=== PATIENT | female | born 1990 | race Caucasian/White ===

== ENCOUNTER 2020-04-22 07:31 | Emergency (ER) | payer OTHER, SELFPAY ==
[2020-04-22 07:39] VITALS: BP 136/84; PULSE 81; RESP 18; TEMP 36.5; O2SAT 98; BMI 43.4
--- NOTE | 2020-04-22 08:04 | ED.DENTAL ---
HPI - Dental/Oral General Chief complaint: Dental/Oral Stated complaint: JAW PAIN Time Seen by Provider: 04/22/20 08:04 Source: patient Mode of arrival: ambulatory Limitations: no limitations History of Present Illness MD Complaint: tooth pain Location: Tooth # (29) Teeth map: 1. Care is tooth tender no gum swelling Onset (ago): day(s) (2) Duration: constant Severity: moderate Relieving factors: nothing Exacerbating factors: cold Context: history of dental caries Related Data Previous Rx's Medication Instructions Recorded bupropion HCl 300 mg 24 hr tablet, 300 mg PO QAM #90 tab 01/30/20 extended release amoxicillin-pot clavulanate 1 tab PO BID #20 tab 04/22/20 [Augmentin] tramadol 50 mg PO Q6H PRN #20 tab 04/22/20 Allergies Allergy/AdvReac Type Severity Reaction Status Date / Time bananas Allergy Unknown swollen Uncoded 08/05/19 00:00 Review of Systems Review of Systems: Yes all other systems are reviewed and are negative [facility] Social History Social History Advance Directives: No Advance Directives Information Provided: No Physical Exam Vital Signs: Vital Signs: Last Vital Signs Temp 97.7 F 04/22/20 07:39 Pulse 81 04/22/20 07:39 Resp 18 04/22/20 07:39 BP 136/84 04/22/20 07:39 Pulse Ox 98 04/22/20 07:39 Body Mass Index 43.4 Const: General: cooperative, healthy appearing and acute distress Orientation/consciousness: patient oriented x3 HENMT: Head: Yes normocephalic and Yes atraumatic Mouth: Normal oral and palatal mucosa present Teeth and gingiva: caries (tooth 29) Throat: Yes posterior oropharynx normal Eyes: General: appearance normal, both eyes and all related structures Neck: Neck: Yes normal visual inspection, Yes full ROM and Yes no lymphadenopathy Resp: Effort & Inspection: normal respiratory effort Auscultation: clear to auscultation bilaterally Neuro: General: patient oriented x3 Procedures Nerve Block Nerve Block 1: Time out performed: Yes Local Anesthetic: lidocaine 2% Amount of anesthesia used (mL): 5 Side: right Intraoral Nerve Block: inferior alveolar and mental Procedure Successful: Yes Patient Tolerated Procedure: well Complications: none MDM - Dental/Oral MDM Narrative Medical decision making narrative: Patient with dental caries inferior alveolar and mental block was given patient feels much better after the injection pain is almost gone discharged home on Augmentin patient has a follow-up planned with dentist and needs root canal Discharge Plan Discharge Clinical Impression: Dental caries Patient Disposition: Home, Self-Care Instructions: Toothache (ED) Additional Instructions: Take medication as prescribed and follow with dentist Prescriptions: New amoxicillin-pot clavulanate [Augmentin] 875-125 mg tablet 1 tab PO BID Qty: 20 RF: 0 tramadol 50 mg tablet 50 mg PO Q6H PRN (Reason: pain) Qty: 20 RF: 0 No Action bupropion HCl 300 mg tablet extended release 24 hr 300 mg PO QAM Qty: 90 RF: 1 Discharge Date/Time: 04/22/20 09:06
[2020-04-22] MEDS: Amoxicillin/Potassium Clav 875 MG TABLET PO (08:17)
[2020-04-22] MEDS: Lidocaine HCl 2 % MPF 5 ML VIAL INFILTRATI ×2 (08:45)
== END 2020-04-22 09:06 | disposition home or self-care (01) ==
PROVIDERS: Emergency Provider Internal Medicine; PCP Internal Medicine
DX: K02.9 Dental caries, unspecified (principal)
CPT/HCPCS: 99283; 99284

== ENCOUNTER 2020-09-28 11:46 | Outpatient (REF) | payer OTHER, SELFPAY ==
[2020-09-28 12:57] LABS: MANUAL DIFF FLAG NO
[2020-09-28 13:07] LABS: Basophils Percent Auto 0.6 % (0-2); Eosinophils Absolute Auto 0.1 X10*3/uL (0.0-0.4); Eosinophils Percent Auto 1.2 % (0-4); Hemoglobin 12.1 g/dl (12.0-16.0); Imm Gran Abs Auto 0.03 X10*3/uL (0.00-0.03); Imm Gran Pct Auto 0.4 % (0.0-0.4); Lymphocytes Absolute Auto 2.3 X10*3/uL (1.2-4.9); Lymphocytes Percent Auto 33.7 % (20-40); Mean Corpuscular Hemoglobin 25.4 pg (27.0-33.0); Mean Corpuscular Volume 81.9 fL (80-98); Mean Platelet Volume 12.4 fL (9.4-12.3); Monocytes Absolute Auto 0.4 X10*3/uL (0.1-1.2); Monocytes Percent Auto 6.4 % (2-11); Neutrophils Absolute Auto 3.9 X10*3/uL (2.0-8.3); Neutrophils Percent Auto 57.7 % (45-73); Platelet Count 266 X10*3/uL (160-400); Red Blood Count 4.76 X10*6/uL (4.20-5.50); Red Cell Distribution Width 14.1 % (11.0-16.0); White Blood Count 6.8 X10*3/uL (4.8-10.8)
[2020-09-28 13:21] LABS: Alanine Aminotransferase 18 U/L (0-31); Albumin Level 3.8 g/dL (3.5-5.0); Alkaline Phosphatase 110 U/L (39-117); Anion Gap 12 (12-20); Aspartate Amino Transferase 16 U/L (5-31); Bilirubin Total 0.4 mg/dL (0.0-1.0); Blood Urea Nitrogen 10 mg/dL (9-16); Calcium 9.1 mg/dL (8.4-10.2); Carbon Dioxide 28 mmol/L (22-29); Chloride 106 mmol/L (96-108); Cholesterol 165 mg/dL; Estimated Glomerular Filt Rate > 60; Glucose Fasting 91 mg/dL (60-99); HDL Cholesterol 44 mg/dL; LDL Cholesterol Calculated 103 mg/dl; Potassium 5.1 mmol/L (3.3-5.1); Sodium 141 mmol/L (135-145); Total Protein 7.1 g/dL (6.5-8.0); Triglycerides 93 mg/dL
[2020-09-28 13:37] LABS: Thyroid Stimulating Hormone 1.45 uIU/mL (0.32-4.0)
[2020-09-29 08:13] LABS: Syphilis Screen Nonreactive (Nonreactive)
[2020-09-29 08:16] LABS: HBc Num1 0.25 S/CO (0.00-0.79); HBsAGNum1 0.22 S/CO (0.00-0.99); HIV AB/AG Nonreactive (Nonreactive); HIV Num 1 0.09 S/CO (0.00-0.99); Hepatitis B Core Antibody Nonreactive (Nonreactive); Hepatitis B Surface Antigen Negative (Negative)
[2020-09-29 08:36] LABS: HBS Num1 241.82 mIU/mL (0-7.99); Hepatitis A Antibody IgM 0.25 Index (0-0.79); ~HepC Num1 0.12 S/CO (0.00-0.79); ~Hepatitis A Antibody IgM Nonreactive (Nonreactive); ~Hepatitis B Surface Antibody REACTIVE (Nonreactive); ~Hepatitis C Antibody Nonreactive (Nonreactive)
[2020-10-01 18:56] LABS: Vitamin D 25-OH, D2 5 ng/mL; Vitamin D 25-OH, D3 12 ng/mL; Vitamin D 25-OH, Total 17 ng/mL (30-100)
== END 2020-09-28 11:47 | disposition home or self-care (01) ==
LOC: HO.LAB 11:46
PROVIDERS: Visit Provider Internal Medicine
DX: Z01.84 Encounter for antibody response examination (principal); Z11.59 Encounter for screening for other viral diseases; Z11.4 Encounter for screening for human immunodeficiency virus [HIV]; Z20.2 Contact with and (suspected) exposure to infections with a predominantly sexual mode of transmission; E55.9 Vitamin D deficiency, unspecified; E66.9 Obesity, unspecified
CPT/HCPCS: 36415; 80053; 80061; 82306; 84443; 85025; 86704; 86706; 86709; 86780; 86803; 87340; 87389

== ENCOUNTER 2021-03-03 12:51 | Outpatient (REF) | payer OTHER, SELFPAY ==
[2021-03-03 15:58] LABS: COVID-19 Test Negative (Negative)
== END 2021-03-03 12:52 | disposition home or self-care (01) ==
LOC: HO.LAB 12:51
PROVIDERS: Visit Provider Internal Medicine
DX: Z20.822 Contact with and (suspected) exposure to COVID-19 (principal)
CPT/HCPCS: 36415; 87635; C9803

== ENCOUNTER 2021-06-14 16:53 | Outpatient (REF) | payer OTHER, SELFPAY ==
[2021-06-15 08:24] LABS: HBS Num1 263.27 mIU/mL (0-7.99); ~Hepatitis B Surface Antibody REACTIVE (Nonreactive)
[2021-06-15 08:52] LABS: HBc Num1 0.09 S/CO (0.00-0.79); HBsAGNum1 0.15 S/CO (0.00-0.99); Hepatitis B Core Antibody Nonreactive (Nonreactive); Hepatitis B Surface Antigen Negative (Negative)
[2021-06-16 14:02] LABS: TS Negative Control Passed; TS Panel A 0; TS Panel B 0; TS Positive Control Passed; TSpotTB Negative (Negative)
== END 2021-06-14 16:54 | disposition home or self-care (01) ==
LOC: HO.LAB 16:53
PROVIDERS: PCP Internal Medicine; Visit Provider Internal Medicine
DX: Z11.59 Encounter for screening for other viral diseases (principal); Z11.1 Encounter for screening for respiratory tuberculosis; R76.12 Nonspecific reaction to cell mediated immunity measurement of gamma interferon antigen response without active tuberculosis
CPT/HCPCS: 36415; 86481; 86704; 86706; 87340

== ENCOUNTER 2021-09-19 07:59 | Outpatient (REF) | payer OTHER, SELFPAY ==
--- NOTE | ~2021-09-19 | XR_ITS ---
EXAMINATION: XR KNEE, LEFT XR KNEE AP STANDING CLINICAL INFORMATION: Pain. COMPARISON: Radiographs dated 04/27/2014. TECHNIQUE: Lateral and axial views of the left knee were obtained. AP bilateral standing view of the knees was obtained. FINDINGS: Bones and soft tissues are normal. No fracture or joint effusion. Alignment is anatomic. Joint spaces are well maintained. No abnormal soft tissue calcification. No varus or valgus configuration is seen bilaterally. XR/XR knee LT 2V IMPRESSION: Normal left knee radiographs and AP standing view of the bilateral knees.
--- NOTE | ~2021-09-19 | XR_ITS ---
EXAMINATION: XR KNEE, LEFT XR KNEE AP STANDING CLINICAL INFORMATION: Pain. COMPARISON: Radiographs dated 04/27/2014. TECHNIQUE: Lateral and axial views of the left knee were obtained. AP bilateral standing view of the knees was obtained. FINDINGS: Bones and soft tissues are normal. No fracture or joint effusion. Alignment is anatomic. Joint spaces are well maintained. No abnormal soft tissue calcification. No varus or valgus configuration is seen bilaterally. XR/XR knee standing BI IMPRESSION: Normal left knee radiographs and AP standing view of the bilateral knees.
== END 2021-09-19 08:00 | disposition home or self-care (01) ==
LOC: HO.HOSX 07:59
PROVIDERS: Visit Provider Physician Assistant
DX: M22.42 Chondromalacia patellae, left knee (principal)
CPT/HCPCS: 20610; 73560; 73565; 99202; J1040

== ENCOUNTER 2022-09-19 17:26 | Outpatient (AMB) | payer OTHER, SELFPAY ==
--- NOTE | 2022-09-19 17:28 | MHC.PC.OV ---
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 Accompanied by: Self / Same As Patient Allergies No Known Food Allergies Allergy (Mild, Verified 09/19/22 17:37) itchy tongue Medication List - Last Reconciled 09/19/22 by Natividad Mahajan MD bupropion HCl 300 mg PO QAM buspirone 5 mg PO BID cholecalciferol (vitamin D3) 25 mcg PO DAILY clobetasol 0.05% 1 appl topical BID 2 weeks hydroxyzine HCl 25 mg PO Q6-8H PRN ketoconazole 2% 1 appl topical 3XW 30 days tizanidine 4 mg PO TID PRN 30 days Tobacco use date assessed: 09/19/22 Dental Screening Dental Screen Date: 09/19/22 Did you have a dental visit in the last 12 months?: Yes Did you have a dental problem in the last 6 months where you did not have access to dental care?: No Was dental information given to patient?: Patient has dentist HPI HPI Comments History of Present Illness Details This is a 31-year-old female that comes for her physical exam. She has moderately severe depression that has been stable with bupropion. Last Pap smear was a year ago. No chest pain or shortness of breath. No acute complaints. [facility] Medical History (Updated 09/27/21 @ 17:39 by Natividad Mahajan MD) Depression Exposure to STD Hypovitaminosis D Morbid obesity due to excess calories Obese Surgical History No pertinent past surgical history Family History Mother Hypertension Father Diabetes Social History Housing: Apartment Alcohol intake: current Alcohol intake frequency: holidays/special occasions only Alcohol type: beer Patient Tobacco Use Status: Former Tobacco user Tobacco use type: Cigarette e-Cigarette/Vaping Use: Never Used Second Hand Smoke Exposure: No service: No Current occupational status: employed Current occupational exposures/hazards: No Cognitive needs: No Hearing needs: No Vision needs: Yes (Glasses) Questionnaire PHQ-9 Over the last 2 weeks, how often have you been bothered by any of the following problems? 1. Little interest or pleasure in doing things: not at all 2. Feeling down, depressed, or hopeless: several days 3. Trouble falling or staying asleep, or sleeping too much: not at all 4. Feeling tired or having little energy: not at all 5. Poor appetite or overeating: not at all 6. Feeling bad about yourself - or that you are a failure or have let yourself or your family down: not at all 7. Trouble concentrating on things, such as reading the newspaper or watching television: not at all 8. Moving or speaking so slowly that other people could have noticed. Or the opposite - being so fidgety or restless that you have been moving around a lot more than usual: not at all 9. Thoughts that you would be better off or of hurting yourself in some way: not at all Total score: 1 Depression Screening Interpretation: Negative 35741 - PHQ-9 Billing: Yes Source: Developed by Drs. Brett Spear, Cammy Pal, Alexandru Barba and colleagues, with an educational sagar from [employer]. Thrive Questionnaire Date Thrive assessed: 09/19/22 I am a: Patient What is your living situation today?: I have a steady place to live Within the past 12 months, did the food you bought not last and you didn't have the money to get more?: Never true Within the past 12 months, did you worry whether your food would run out before you got money to buy more?: Never true Do you have trouble paying for medicines?: No Do you have trouble getting transportation to medical appointments?: No Do you have trouble paying your heating and electricity bill?: No Do you have trouble taking care of your child, family member or friend?: No Do you have trouble with day-to-day activities such as bathing, preparing meals, shopping, managing finances, etc.?: No Are you currently unemployed and looking for a job?: No Are you interested in more education?: No Please select the resources that you would like help with: None Currently or been in a relationship where the following occur: no concerns reported AUDIT C Alcohol Use Questionnaire (AUDIT-C) 1. How often do you have a drink containing alcohol?: Never Total Score: 0 Score Reviewed/Action Taken: No LAZARO-7 AMB Questionnaire LAZARO-7 Date LAZARO - 7 assessed: 09/19/22 Feeling nervous, anxious, or on edge: 1 = Several days Not being able to stop or control worryin = Not at all Worrying too much about different things: 1 = Several days Trouble relaxin = Not at all Being so restless that it is hard to sit still: 0 = Not at all Becoming easily annoyed or irritable: 0 = Not at all Feeling afraid as if something awful might happen: 0 = Not at all Total LAZARO-7 score (0-4 normal; 5-9 mild; 10-14 moderate; 15-21 severe): 2 Source: Developed by Drs. Brett Spear, Cammy Pal, Alexandru Barba and colleagues, with an educational sagar from [employer]. LAZARO-7 Assessment Billing LAZARO-7 Assessment Tool: LAZARO-7 Assessment 24355 Review of Systems Const All systems reviewed & are unremarkable except as noted in HPI and below Eyes Reports no additional complaints, Denies change in vision and Denies other visual disturbances Card Denies chest pain at rest, Denies chest pain with activity, Denies edema, Denies irregular heart rhythm, Denies claudication, Denies dyspnea, Denies dyspnea on exertion, Denies orthopnea, Denies paroxysmal nocturnal dyspnea and Denies slow heart rate Resp Denies cough, Denies dyspnea and Denies dyspnea on exertion GI Denies abdominal pain, Denies change in bowel habits, Denies excessive flatus, Denies nausea and Denies vomiting Denies urinary incontinence, Denies urinary hesitancy and Denies urinary urgency Musc Denies abnormal gait, Denies atrophy, Denies deformity and Denies limited range of motion Skin/Breast Denies bleeding lesions, Denies changing lesions and Denies rash Neuro Denies abnormal gait and Denies lack of coordination Physical exam (Primary Care) Vital Signs: Last Vital Signs BP 112/70 09/19/22 17:30 BMI result Body Mass Index 39.1 Tobacco/Smoking Status: Tobacco use Status Tobacco use date assessed 05/17/21 09/27/21 17:28 Patient Tobacco Use Status Former Tobacco user 09/27/21 17:28 Tobacco use type Cigarette 09/27/21 17:28 e-Cigarette/Vaping Use Never Used 09/27/21 17:28 Depression Screening Interpretation: Negative Thrive Assessment: Date of Thrive Assessment Date Thrive assessed 08/09/21 09/27/21 17:28 Currently or been in a relationship where the following occur: no concerns reported Const Orientation/consciousness: patient oriented x3 HENMT Head: Yes normal to inspection, Yes normocephalic and Yes atraumatic Ears: external ears normal Eyes General: appearance normal, both eyes and all related structures Eyelids: Yes eyelids normal Conjunctivae: conjunctivae normal Neck Neck: Yes normal visual inspection and Yes supple Resp Effort & Inspection: normal respiratory effort Auscultation: clear to auscultation bilaterally Cardio Jugular venous distension: no JVD Rate: regular rate Rhythm: regular rhythm Heart sounds: S1 normal heart sound present and S2 normal heart sound present GI Inspection: Yes normal to inspection Palpation (GI): Soft to palpation and nontender Auscultation: normal bowel sounds Skin General skin exam: no rashes or lesions noted Neuro General: patient oriented x3 and no focal motor deficits Extrem General: Yes full ROM Psych Appearance: grossly normal Assessment and Plan Assessment & Plan (1) Physical exam: Code(s): Z00.00 - Encounter for general adult medical examination without abnormal findings Plan: Repeat in a year (2) Moderately severe depression: Code(s): F32.2 - Major depressive disorder, single episode, severe without psychotic features Plan: Continue bupropion Orders: Orders Comprehensive [place]. Panel Fast Today Z00.00 - Encounter for general adult medical examination without abnormal findings Lipid Panel Today Z00.00 - Encounter for general adult medical examination without abnormal findings Vitamin D 25-OH Total Today E55.9 - Vitamin D deficiency, unspecified Medications: Refilled bupropion HCl 300 mg PO QAM 90 tabs 1RF Z00.00 - Encounter for general adult medical examination without abnormal findings buspirone 5 mg PO BID 60 tabs 0RF Z00.00 - Encounter for general adult medical examination without abnormal findings cholecalciferol (vitamin D3) 25 mcg PO DAILY 90 tabs 0RF Z00.00 - Encounter for general adult medical examination without abnormal findings tizanidine 4 mg PO TID 30 days PRN 90 tabs 3RF muscle spasticity Z00.00 - Encounter for general adult medical examination without abnormal findings ketoconazole 2% 1 appl topical 3XW 30 days 120 mL 0RF L21.9 - Seborrheic dermatitis, unspecified hydroxyzine HCl 25 mg PO Q6-8H PRN 90 tabs 0RF axiety Z00.00 - Encounter for general adult medical examination without abnormal findings clobetasol 0.05% 1 appl topical BID 2 weeks 50 mL 0RF L21.9 - Seborrheic dermatitis, unspecified Coding Level of Care Code Est Pt Prev Care 18-39y(91442) Diagnoses Physical exam Z00.00 Moderately severe depression F32.2 Additional Codes LAZARO-7 Assessment Billing - LAZARO-7 Assessment Tool: LAZARO-7 Assessment 62554 ([id number]) Time Spent (min) 32
[2022-09-19 17:30] VITALS: BP 112/70; BMI 39.1
== END 2022-09-19 17:49 | disposition home or self-care (01) ==
PROVIDERS: PCP Internal Medicine; Visit Provider Internal Medicine
DX: Z00.00 Encounter for general adult medical examination without abnormal findings (principal); F32.2 Major depressive disorder, single episode, severe without psychotic features
CPT/HCPCS: 99395

== ENCOUNTER 2023-09-24 17:10 | Outpatient (AMB) | payer OTHER, SELFPAY ==
[2023-09-24 17:14] VITALS: BP 110/62; PULSE 76; O2SAT 99; BMI 29.7
--- NOTE | 2023-09-24 17:14 | A.OFFPC_ITS ---
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 Accompanied by: Self / Same As Patient Allergies No Known Food Allergies Allergy (Mild, Verified 09/24/23 17:22) itchy tongue Medication List - Last Reconciled 09/24/23 by Natividad Mahajan MD bupropion HCl XL 300 mg PO QAM buspirone 5 mg PO BID cholecalciferol (vitamin D3) 25 mcg PO DAILY clobetasol 0.05% 1 appl topical BID 2 weeks hydroxyzine HCl 25 mg PO Q6-8H PRN ketoconazole 2% 1 appl topical 3XW 30 days tizanidine 4 mg PO TID PRN 30 days Tobacco use date assessed: 09/24/23 Dental Screening Dental Screen Date: 09/24/23 Did you have a dental visit in the last 12 months?: Yes Did you have a dental problem in the last 6 months where you did not have access to dental care?: No Was dental information given to patient?: Patient has dentist HPI HPI Comments History of Present Illness Details This is a 32-year-old female with mild recurrent major depression that comes for her physical exam. Depression has been stable with bupropion. Last Pap smear was at [place] 2022 and was normal as per patient. She complains of nontender lymphadenopathy in the right side submandibular that she noticed few weeks ago. No fever or night sweats. Will order ultrasound and will give her antibiotics. [facility] Medical History (Updated 09/24/23 @ 17:39 by Natividad Mahajan MD) Moderately severe depression Hypovitaminosis D Morbid obesity due to excess calories Exposure to STD Depression Obese Surgical History No pertinent past surgical history Family History Mother Hypertension Father Diabetes Social History Housing: Apartment Alcohol intake: current Alcohol intake frequency: holidays/special occasions only Alcohol type: beer Patient Tobacco Use Status: Former Tobacco user Tobacco use type: Cigarette e-Cigarette/Vaping Use: Never Used Second Hand Smoke Exposure: No service: No Current occupational status: employed Current occupational exposures/hazards: No Cognitive needs: No Hearing needs: No Vision needs: Yes (Glasses) Questionnaire PHQ-9 Over the last 2 weeks, how often have you been bothered by any of the following problems? 75765 - PHQ-9 Billing: Patient declined-do not bill Source: Developed by Drs. Brett Spear, Cammy Pal, Alexandru Barba and colleagues, with an educational sagar from [employer]. Thrive Questionnaire Date Thrive assessed: 09/24/23 I am a: Patient What is your living situation today?: I have a steady place to live Within the past 12 months, did the food you bought not last and you didn't have the money to get more?: Never true Within the past 12 months, did you worry whether your food would run out before you got money to buy more?: Never true Do you have trouble paying for medicines?: No Do you have trouble getting transportation to medical appointments?: No Do you have trouble paying your heating and electricity bill?: No Do you have trouble taking care of your child, family member or friend?: No Do you have trouble with day-to-day activities such as bathing, preparing meals, shopping, managing finances, etc.?: No Are you currently unemployed and looking for a job?: No Are you interested in more education?: No Please select the resources that you would like help with: None Currently or been in a relationship where the following occur: No concerns reported THRIVE Score: 0 AUDIT C Alcohol Use Questionnaire (AUDIT-C) 1. How often do you have a drink containing alcohol?: Never 3. How often do you have six or more drinks on one occasion?: Never Total Score: 0 Score Reviewed/Action Taken: No LAZARO-7 AMB Questionnaire LAZARO-7 Date LAZARO - 7 assessed: 09/24/23 Source: Developed by Drs. Brett Spear, Cammy Pal, Alexandru Barba and colleagues, with an educational sagar from [employer]. LAZARO-7 Assessment Billing LAZARO-7 Assessment Tool: pt declined-do not bill Review of Systems Const All systems reviewed & are unremarkable except as noted in HPI and below ENT Denies change in voice, Denies lip swelling, Denies nasal discharge and Denies sinus pain Card Denies chest pain at rest, Denies chest pain with activity, Denies edema, Denies irregular heart rhythm, Denies claudication, Denies dyspnea, Denies dyspnea on exertion, Denies orthopnea, Denies paroxysmal nocturnal dyspnea and Denies slow heart rate Resp Denies cough, Denies dyspnea and Denies dyspnea on exertion GI Denies abdominal pain, Denies change in bowel habits, Denies excessive flatus, Denies nausea and Denies vomiting Denies urinary incontinence, Denies urinary hesitancy and Denies urinary urgency Musc Denies abnormal gait, Denies atrophy, Denies deformity and Denies limited range of motion Skin/Breast Denies bleeding lesions, Denies changing lesions and Denies rash Neuro Denies abnormal gait, Denies behavioral changes and Denies lack of coordination Psych Denies behavioral changes Endo Denies cold intolerance Rj/Lymph Denies easy bleeding and Denies easy bruising Aller/Immun Denies urticaria and Denies lip swelling Physical exam (Primary Care) Vital Signs: Last Vital Signs Pulse 76 09/24/23 17:14 BP 110/62 09/24/23 17:14 Pulse Ox 99 09/24/23 17:14 Oxygen Delivery Method Room Air 09/24/23 17:14 BMI result Body Mass Index 29.7 BMI Assessment/Plan discussion: High BMI High, discussed plan: lifestyle, weight reduction, dietary and physical activity Tobacco/Smoking Status: Tobacco use Status Tobacco use date assessed 09/24/23 09/24/23 17:21 Patient Tobacco Use Status Former Tobacco user 09/24/23 17:21 Tobacco use type Cigarette 09/24/23 17:21 e-Cigarette/Vaping Use Never Used 09/24/23 17:21 Thrive Assessment: Date of Thrive Assessment Date Thrive assessed 09/24/23 09/24/23 17:21 Currently or been in a relationship where the following occur: No concerns reported Const General: cooperative HENMT Head: Yes normal to inspection, Yes normocephalic and Yes atraumatic Ears: external ears normal Eyes General: appearance normal, both eyes and all related structures Eyelids: Yes eyelids normal Conjunctivae: conjunctivae normal Neck Neck: Yes normal visual inspection and Yes supple Lymphatic: lymphadenopathy ( Right submandibular) Resp Effort & Inspection: normal respiratory effort Auscultation: clear to auscultation bilaterally Cardio Jugular venous distension: no JVD Rate: regular rate Rhythm: regular rhythm Heart sounds: S1 normal heart sound present and S2 normal heart sound present GI Inspection: Yes normal to inspection Palpation (GI): Soft to palpation and nontender Auscultation: normal bowel sounds Skin General skin exam: no rashes or lesions noted Neuro General: no focal motor deficits Extrem General: Yes full ROM Psych Appearance: grossly normal Assessment and Plan Assessment & Plan (1) Physical exam: Code(s): Z00.00 - Encounter for general adult medical examination without abnormal findings Plan: repeat in a year. (2) Mild recurrent major depression: Code(s): F33.0 - Major depressive disorder, recurrent, mild Plan: Continue bupropion. (3) Lymphadenopathy: Code(s): R59.1 - Generalized enlarged lymph nodes Plan: start amoxicillin. Ultrasound ordered. Orders: Orders US soft tiss head and/or neck Today R59.1 - Generalized enlarged lymph nodes Lipid Panel Today Z00.00 - Encounter for general adult medical examination without abnormal findings CT NG by PCR Today Z11.3 - Encounter for screening for infections with a predominantly sexual mode of transmission Comprehensive [place]. Panel Fast Today Z00.00 - Encounter for general adult medical examination without abnormal findings HIV Ab/Ag Today Z11.3 - Encounter for screening for infections with a predominantly sexual mode of transmission Syphilis Screen Today Z11.3 - Encounter for screening for infections with a predominantly sexual mode of transmission Hepatitis B,C Profile Today Z11.3 - Encounter for screening for infections with a predominantly sexual mode of transmission Medications: New amoxicillin 500 mg PO Q12H 7 days 14 caps 0RF Changed From buspirone 5 mg PO BID 60 tabs 0RF To buspirone 5 mg PO BID 90 days 180 tabs 1RF Refilled bupropion HCl XL 300 mg PO QAM 90 tabs 1RF Z00.00 - Encounter for general adult medical examination without abnormal findings tizanidine 4 mg PO TID 30 days PRN 90 tabs 3RF muscle spasticity Z00.00 - Encounter for general adult medical examination without abnormal findings clobetasol 0.05% 1 appl topical BID 2 weeks 50 mL 0RF L21.9 - Seborrheic dermatitis, unspecified cholecalciferol (vitamin D3) 25 mcg PO DAILY 90 tabs 0RF Z00.00 - Encounter for general adult medical examination without abnormal findings hydroxyzine HCl 25 mg PO Q6-8H PRN 90 tabs 0RF axiety Z00.00 - Encounter for general adult medical examination without abnormal findings ketoconazole 2% 1 appl topical 3XW 30 days 120 mL 0RF L21.9 - Seborrheic dermatitis, unspecified Coding Level of Care Code Est Pt Level 3 (86288) Est Pt Prev Care 18-39y(21137) Diagnoses Physical exam Z00.00 Mild recurrent major depression F33.0 Lymphadenopathy R59.1 Time Spent (min) 35
== END 2023-09-24 17:37 | disposition home or self-care (01) ==
PROVIDERS: PCP Internal Medicine; Visit Provider Internal Medicine
DX: Z00.00 Encounter for general adult medical examination without abnormal findings (principal); R59.1 Generalized enlarged lymph nodes; F33.0 Major depressive disorder, recurrent, mild
CPT/HCPCS: 99213; 99395

== ENCOUNTER 2024-12-16 16:31 | Outpatient (AMB) | payer OTHER, SELFPAY ==
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
[2024-12-16 16:39] VITALS: BP 124/86; PULSE 72; TEMP 36.3; O2SAT 98; BMI 33.3
--- OUTSIDE RECORDS SUMMARY | 2024-12-16 18:55 | XMS_ITS | Clinical Summary ---
Author Organization [address] Address [address] [place] [phone] Phone Care Team Providers Care Waxer Floor Name Role Phone Gallo Du MD Primary Care Provider Allergies Active Allergy Reactions Criticality Noted Date Comments Metronidazole Itching High 10/27/2016 Medications buPROPion XL (WELLBUTRIN XL) 300 mg 24 hr tablet Take 1 tablet (300 mg total) by mouth 1 (one) time each day in the morning. 10/10/2023 Active ascorbic acid (VITAMIN C) 250 mg tablet Take 1 tablet (250 mg total) by mouth 1 (one) time each day. Active busPIRone (BUSPAR) 5 mg tablet Take 1 tablet (5 mg total) by mouth 2 (two) times a day. 10/10/2023 Active calcium carbonate-abebe calciferol 500 mg-10 mcg (400 unit) per tablet Take 1 tablet by mouth 2 (two) times a day. 08/23/2017 Active hydrOXYzine HCL (ATARAX) 25 mg tablet Take 1 tablet (25 mg total) by mouth every 6 (six) hours if needed. Every 6-8 hours as needed for anxiety 10/10/2023 Active ibuprofen (ADVIL,MOTRIN) 600 mg tablet Take 1 tablet (600 mg total) by mouth every 6 (six) hours if needed. 10/10/2023 Active tiZANidine (ZANAFLEX) 4 mg tablet Take 1 tablet (4 mg total) by mouth 3 (three) times a day. As needed for muscle spasms 10/10/2023 Active Surgical History Surgery Date Site/Laterality Comments OTHER SURGICAL HISTORY PROCEDURE: DENIES PREVIOUS SURGERY Medical History Medical History Date Comments Fibromyalgia DX:Fibromyalgia Family History Medical History Relation Name Comments Breast cancer Aunt Diabetes Father Arthritis Maternal Grandfather Diabetes Maternal Grandfather Arthritis Maternal Grandmother Arthritis Mother Car accident Mother Hypertension Mother Cervical cancer Neg Hx Colon cancer Neg Hx Prostate cancer Neg Hx Relation Name Status Comments Aunt Alive Father Alive Maternal Grandfather Maternal Grandmother Mother Social History Tobacco Use Types Packs/Day Years Used Date Smoking Tobacco: Former Cigarettes Q uit: 02/28/2019 Smokeless Tobacco: Never Tobacco Cessation:Counseling Given: Not Answered Alcohol Use Standard Drinks/Week Comments No 0 (1 standard drink = 0.6 oz pur e alcohol) Comments No Sex and Gender Information Value Date Recorded Sex Assigned at Not on file Legal Sex Female 5:42 PM EST Gender Identity Not on file Sexual Orientation Not on file Obstetrics History Para Term AB IAB SAB Ectopic Multiple Livin g Live Births 2 2 2 2 2 Date Outcome GA Total Labor Labor/2nd/3rd Weight Sex Type Anes PTL Alexa A1 A5 Name Clin 2004 Term F Vag-S pont N Living Complications:None 2007 Term F Vag-S pont N Living Complications:None Last Filed Vital Signs Vital Sign Reading Time Taken Comments Blood Pressure 117/72 03/21/2024 10:16 AM EST Pulse 67 03/21/2024 10:16 AM EST Temperature - - Respiratory Rate 18 03/21/2024 10:16 AM EST Oxygen Saturation - - Inhaled Oxygen Concentration - - Weight 79.8 kg (176 lb) 03/21/2024 10:16 AM EST Height 154.9 cm (5' 1 ) 03/21/2024 10:16 AM EST Body Mass Index 33.25 03/21/2024 10:16 AM EST Plan of Treatment Health Maintenance Due Date Last Done Comments HPV Vaccines (1 - 3-dose SCDM series) 11/26/2015 Depression Screening 03/12/2024 Social Influencers of Health Screening 03/20/2024 COVID-19 Vaccine ( season) 2024 04/22/2021, 10/28/2020, 10/07/2020 Influenza Vaccine (#1) 2024 , 11/17/2021, 12/05/2020, Additional history exists Cervical Cancer Screening: HPV 03/21/2029 03/21/2024 DTaP,Tdap,and Td Vaccines (4 - Td or Tdap) 05/16/2032 05/16/2022, 02/02/2016, 07/24/2000 RSV Immunization Adult Patients (1 - 1-dose 75+ series) 11/26/2063 Hepatitis B Vaccines Completed 02/25/1999, 09/21/1998, 06/16/1996 MMR Vaccines Aged Out 09/01/2019, 08/05/2019 No lo nger eligible based on patient's age to complete this topic HIV Screening Completed 03/21/2024 Hepatitis C Screening Completed 03/21/2024 HIB Vaccines Aged Out No longer eligi ble based on patient's age to complete this topic Hepatitis A Vaccines Aged Out No long er eligible based on patient's age to complete this topic IPV Vaccines Aged Out No longer eligi ble based on patient's age to complete this topic Meningococcal ACWY Vaccine Aged Out N o longer eligible based on patient's age to complete this topic Meningococcal B Vaccine Aged Out No l onger eligible based on patient's age to complete this topic Pneumococcal Vaccine: Pediatrics (0 to 5 Years) and At-Risk Patients (6 to 49 Years) Aged Out No longer eligible based on patient's age to complete this topic RSV Immunization Patients Under 20 months Aged Out No longer eligible based on patient's age to complete this topic Varicella Vaccines Aged Out No longer eligible based on patient's age to complete this topic Procedures Procedure Name Priority Date/Time Associated Diagnosis Comments HPV WITH REFLEX GENOTYPE Routine 03/21/2024 11:55 AM EST Encounter for annual routine gynecological examination HEPATITIS C ANTIBODY Routine 03/21/2024 11:00 AM EST Screen for STD (sexually transmitted disease) HIV 1, 2 ANTIBODY, P24 ANTIGEN WITH REFLEX TO DIFFERENTIATION Routine 03/21/2024 11:00 AM EST Screen for STD (sexually transmitted disease) from Last 3 Months or Most Recently Relevant to Health Maintenance Results * HPV with reflex genotype (03/21/2024 11:55 AM EST) HPV Negative Negative LAB MICROBIOLOGY METHOD 03/25/2024 4:04 PM EST [facility] Brushing/Spatula Cervix uteri structure / Unknown 03/21/2024 11:55 AM EST 03/24/2024 9:14 AM EST Radha Díaz CNM LAB MOLECULAR DIAGNOSTI CS ORDERABLES Final Result Performing Organization Address City/[facility]/ZIP Co de Phone Number [facility] [address] [place] [address], [place] [phone] * Hepatitis C antibody (03/21/2024 11:00 AM EST) Hepatitis C Antibody Negative Negative LAB CHEMISTRY METHOD 03/21/2024 3:20 PM [facility] Blood Venous blood specimen / Unknown Venipuncture / Unknown 03/21/2024 11:00 AM EST 03/21/2024 11:00 AM EST Radha KINGSLEY LAB BLOOD ORDERABLES Fi nal Result Performing Organization Address City/[facility]/ZIP Co de Phone Number [facility] [address] [place] [address], [place] [phone] * HIV 1,2 antibody, p24 antigen with reflex to differentiation (03/21/2024 11:00 AM EST) HIV Combo AB/AG Negative Negative LAB CHEMISTRY METHOD 03/21/2024 3:20 PM EST [facility] Blood Venous blood specimen / Unknown Venipuncture / Unknown 03/21/2024 11:00 AM EST 03/21/2024 11:00 AM EST Narrative [facility] - 03/21/2024 3:20 PM EST This assay is a 4th generation assay allowing for earlier detection of HIV infection by detecting the presence of the HIV-1 p24 antigen as well as the traditional antibodies to HIV type 1 (including group O) and type 2. Use of a 4th generation assay is the current CDC recommendation for HIV screening. us Radha Díaz CN LAB BLOOD ORDERABLES Fi nal Result [facility] [address] [place] [address], [place] [phone] from Last 3 Months or Most Recently Relevant to Health Maintenance Insurance [facility] [employer] Care Teams Waxer Floor Relationship Specialty Start Date End Date Gallo Du MD PCP - General Internal Medicine 03/20/24
== END 2024-12-16 18:17 | disposition home or self-care (01) ==
LOC: HO.HMCH 16:31
PROVIDERS: PCP Internal Medicine; Visit Provider Internal Medicine
DX: Z00.00 Encounter for general adult medical examination without abnormal findings (principal)

== ENCOUNTER → 2024-12-16 16:31 | Outpatient (BNVA) | payer OTHER, SELFPAY | PROVIDERS: PCP Internal Medicine; Visit Provider Internal Medicine | DX: Z02.1 Encounter for pre-employment examination (principal) | CPT/HCPCS: 99395 ==